=== PATIENT | male | born 1960 | race Native Hawaiian/Other Pacific Islander ===

== ENCOUNTER 2020-11-11 14:17 | Emergency (ER) | payer OTHER ==
[~2020-11-11] VITALS: Ht 182.9 cm; Wt 86.2 kg
[2020-11-11 15:35] VITALS: BP 114/69; TEMP 97.5
== END 2020-11-11 15:35 | disposition home or self-care (01) ==
LOC: ED 14:17
DX: M54.41 Lumbago with sciatica, right side (principal)
CPT/HCPCS: 96372; 99282; J1885

== ENCOUNTER 2021-02-16 10:35 | Emergency (ER) | payer OTHER ==
[~2021-02-16] VITALS: Ht 182.9 cm; Wt 72.6 kg
[2021-02-16 10:35] VITALS: TEMP 97.4
[2021-02-16 11:06] LABS: PLATELET COUNT 469 K/uL (142-355)
[2021-02-16 11:16] LABS: POTASSIUM 3.2 mmol/L (3.6-5.2)
[2021-02-16 13:30] VITALS: BP 115/74
== END 2021-02-16 15:37 | disposition home or self-care (01) ==
LOC: ED 10:35
PROVIDERS: Emergency Medicine
DX: R11.10 Vomiting, unspecified (principal); Z86.19 Personal history of other infectious and parasitic diseases
CPT/HCPCS: 80053; 82150; 83690; 85027; 96360; 99284